=== PATIENT | male | born 1995 | race Caucasian/White ===

== ENCOUNTER 2021-01-19 13:26 | Observation (INO) | payer BC ==
[2021-01-19] MEDS ORDERED: ACETAMINOPHEN 1000 MG/100 ML VIAL (NON FORMULARY) IVPB ONE (14:02)
[2021-01-19 15:06] LABS: BASO % 0.8 % (0-2.0); EOS % 13.1 % (0-4.5); HEMATOCRIT 43.9 % (35.4-49); HEMOGLOBIN 14.9 GM/dL (11.7-16.9); LYMPH % 17.9 % (8-40); MCH 28.9 pg (25.7-33.7); MCHC 34.1 g/dl (32.0-35.9); MEAN CELL VOLUME 84.7 fl (80-96); MEAN PLT VOLUME 8.2 fl (7.5-11.1); MONO % 6.2 % (3.8-10.2); PLATELET COUNT 356 10^3/uL (134-434); RBC 5.17 M/mm3 (4.00-5.60); RDW 13.2 % (11.9-15.9)
[2021-01-19 15:19] LABS: URINE APPEARANCE CLEAR; URINE BILIRUBIN NEGATIVE (NEGATIVE); URINE COLOR YELLOW; URINE GLUCOSE (UA) NEGATIVE (NEGATIVE); URINE KETONE NEGATIVE (NEGATIVE); URINE LEUK ESTERASE NEGATIVE (NEGATIVE); URINE NITRITE NEGATIVE (NEGATIVE); URINE PROTEIN NEGATIVE (NEGATIVE)
[2021-01-19] MEDS ORDERED: ACETAMINOPHEN INJECTION 100 ML IVPB ONE (15:20)
[2021-01-19 15:27] LABS: CALCIUM 9.3 mg/dL (8.5-10.1)
[2021-01-19 15:28] LABS: ALBUMIN 3.8 g/dl (3.4-5.0); BLOOD UREA NITROGEN 17.3 mg/dL (7-18)
[2021-01-19 15:32] LABS: CREATININE 0.9 mg/dL (0.55-1.3)
[2021-01-19 15:33] LABS: BILIRUBIN,TOTAL 0.4 mg/dL (0.2-1); TOT PROT 7.4 g/dl (6.4-8.2)
[2021-01-19] MEDS ORDERED: PIPERACILLIN/TAZOB 4.5 GM 4.5 GM in DEXTROSE 5%-WATER 100 ML IVPB ONE (18:53)
[2021-01-19] MEDS ORDERED: PIPERACILLIN/TAZOB 4.5 GM 4.5 GM/100 ML BAG IVPB ONE (19:01)
[2021-01-19] MEDS ORDERED: ACETAMINOPHEN 1000 MG/100 ML VIAL (NON FORMULARY) IVPB PRN (22:54)
[2021-01-19] MEDS ORDERED: ALBUTEROL SO4 HFA INHALER IH PRN (22:54)
[2021-01-19] MEDS ORDERED: SODIUM CHLORIDE 1,000 ML IV SCH (23:00)
[2021-01-19 23:23] VITALS: BMI 25.8
[2021-01-20] MEDS ORDERED: PIPERACILLIN/TAZOBACTAM 3.375 GM VIAL IVPB ONE ×2 (00:59→09:15)
[2021-01-20] MEDS ORDERED: DEXTROSE 5%-WATER - 50 ML IVPB ONE ×2 (01:00→09:16)
[2021-01-20] MEDS ORDERED: PIPERACILLIN/TAZOB 3.375 GM 3.375 GM in DEXTROSE 5%-WATER - 50 ML IVPB ONE (02:00)
[2021-01-20 09:07] LABS: INR 1.11 (0.83-1.09); PROTHROMBIN TIME (PATIENT) 13.4 SEC (9.7-13.0)
[2021-01-20 09:10] LABS: ACTIVATED PTT 31.6 SECONDS (25.2-36.5)
[2021-01-20 09:11] LABS: EOS % 14.4 % (0-4.5); HEMATOCRIT 40.4 % (35.4-49); HEMOGLOBIN 13.6 GM/dL (11.7-16.9); LYMPH % 22.4 % (8-40); MCHC 33.7 g/dl (32.0-35.9); MEAN CELL VOLUME 86.1 fl (80-96); MEAN PLT VOLUME 8.5 fl (7.5-11.1); MONO % 7.5 % (3.8-10.2); NEUT % 54.7 % (42.8-82.8); PLATELET COUNT 305 10^3/uL (134-434); RBC 4.69 M/mm3 (4.00-5.60); RDW 13.3 % (11.9-15.9); WHITE BLOOD COUNT 8.3 K/mm3 (4.0-10.0)
[2021-01-20 09:27] LABS: CALCIUM 9.1 mg/dL (8.5-10.1)
[2021-01-20 09:32] LABS: ALBUMIN 3.4 g/dl (3.4-5.0); BLOOD UREA NITROGEN 12.6 mg/dL (7-18)
[2021-01-20 09:35] LABS: BILIRUBIN,TOTAL 0.5 mg/dL (0.2-1); CREATININE 0.8 mg/dL (0.55-1.3); PHOSPHOROUS 3.9 mg/dL (2.5-4.9); TOT PROT 6.4 g/dl (6.4-8.2)
[2021-01-20] MEDS ORDERED: PIPERACILLIN/TAZOB 3.375 GM 3.375 GM in DEXTROSE 5%-WATER - 50 ML IVPB SCH (10:00)
[2021-01-20] MEDS ORDERED: ROCURONIUM BROMIDE 50 MG/5 ML SYRINGE ONE ×2 (10:25→12:01)
[2021-01-20] MEDS ORDERED: MIDAZOLAM HCL 2 MG/2 ML SINGLE DOSE VIAL ONE (10:25)
[2021-01-20] MEDS ORDERED: DESFLURANE GAS 240 ML BOTTLE IH ONE (11:52)
[2021-01-20] MEDS ORDERED: oxyCODONE HCL 5 MG TABLET PO PRN ×2 (12:12→13:36)
[2021-01-20] MEDS ORDERED: ONDANSETRON 4 MG/2 ML VIAL IVPUSH PRN ×2 (12:12→13:36)
[2021-01-20] MEDS ORDERED: LACTATED RINGERS SOLUTION 1,000 ML IV SCH (12:15)
[2021-01-20] MEDS ORDERED: KETOROLAC TROMETHAMINE 30 MG/1 ML VIAL ONE (13:03)
[2021-01-20] MEDS ORDERED: GLYCOPYRROLATE 0.2 MG/1 ML VIAL ONE (13:06)
[2021-01-20] MEDS ORDERED: NEOSTIGMINE METHYLSULFATE 0.5 MG/ML - 10 ML MDV ONE (13:06)
[2021-01-20] MEDS ORDERED: BUPIVACAINE HCL/PF 0.5% (5MG/ML) 10 ML VIAL IJ ONE (13:07)
[2021-01-20] MEDS ORDERED: SODIUM CHLORIDE 1,000 ML IV SCH (13:36)
[2021-01-20] MEDS ORDERED: ACETAMINOPHEN 1000 MG/100 ML VIAL (NON FORMULARY) IVPB PRN (13:36)
[2021-01-20] MEDS ORDERED: ALBUTEROL SO4 HFA INHALER IH PRN (13:36)
[2021-01-20] MEDS: LACTATED RINGERS SOLUTION 1,000 ML IV SCH ×2 (16:27→23:11)
[2021-01-21] MEDS: LACTATED RINGERS SOLUTION 1,000 ML IV SCH ×2 (06:07→10:25)
[2021-01-21 08:39] LABS: BASO % 0.4 % (0-2.0); EOS % 0.7 % (0-4.5); HEMATOCRIT 41.4 % (35.4-49); HEMOGLOBIN 13.7 GM/dL (11.7-16.9); LYMPH % 21.6 % (8-40); MCH 28.5 pg (25.7-33.7); MCHC 33.1 g/dl (32.0-35.9); MEAN CELL VOLUME 86.3 fl (80-96); MEAN PLT VOLUME 8.7 fl (7.5-11.1); MONO % 8.1 % (3.8-10.2); NEUT % 69.2 % (42.8-82.8); PLATELET COUNT 361 10^3/uL (134-434); RDW 12.9 % (11.9-15.9); WHITE BLOOD COUNT 9.1 K/mm3 (4.0-10.0)
[2021-01-21 09:05] LABS: ALBUMIN 3.4 g/dl (3.4-5.0)
[2021-01-21 09:06] LABS: BLOOD UREA NITROGEN 10.2 mg/dL (7-18); CALCIUM 8.9 mg/dL (8.5-10.1); MAGNESIUM 2.1 mg/dL (1.8-2.4)
[2021-01-21 09:08] LABS: PHOSPHOROUS 3.8 mg/dL (2.5-4.9)
[2021-01-21 09:09] LABS: CREATININE 0.9 mg/dL (0.55-1.3)
[2021-01-21 09:10] LABS: BILIRUBIN,TOTAL 0.5 mg/dL (0.2-1); TOT PROT 6.4 g/dl (6.4-8.2)
[2021-01-21] MEDS ORDERED: oxyCODONE HCL 5 MG TABLET PO PRN (09:14)
[2021-01-21] MEDS: ACETAMINOPHEN 500 MG TABLET (FP) PO SCH ×3 (10:26→21:41)
[2021-01-21] MEDS: ENOXAPARIN NA (PORCINE) 40 MG/0.4 ML DISP.SYRIN SQ SCH (10:27)
[2021-01-21] MEDS: IBUPROFEN 600 MG TABLET (FP) PO SCH ×2 (10:27→18:40)
[2021-01-22] MEDS: LACTATED RINGERS SOLUTION 1,000 ML IV SCH (02:29)
[2021-01-22] MEDS: IBUPROFEN 600 MG TABLET (FP) PO SCH (02:30)
[2021-01-22] MEDS: ACETAMINOPHEN 500 MG TABLET (FP) PO SCH (02:39)
[2021-01-22] MEDS: ENOXAPARIN NA (PORCINE) 40 MG/0.4 ML DISP.SYRIN SQ SCH (09:40)
[2021-01-22 11:00] VITALS: BP 124/66; PULSE 68; TEMP 98.2
== END 2021-01-22 12:57 | disposition home or self-care (01) ==
LOC: JER 13:26 → UNDOADMOB 18:59 → JERBED 18:59 → INTOOBSV 18:59 → J8W 22:44 → JERBED 22:44 → UNDOADMOB 22:47 → J8W 01-20 10:47 → OBSVTOIN 01-20 10:47 → UNDOADMOB 01-20 10:47 → INTOOBSV 01-20 10:47 → JERBED 01-20 10:47
PROVIDERS: ATTEND Internal Medicine
PROC: 3E023GC Introduction of Other Therapeutic Substance into Muscle, Percutaneous Approach (ICD-10-PCS; 2021-01-20)
PROC: 3E033NZ Introduction of Analgesics, Hypnotics, Sedatives into Peripheral Vein, Percutaneous Approach (ICD-10-PCS; 2021-01-20)
PROC: 3E0337Z Introduction of Electrolytic and Water Balance Substance into Peripheral Vein, Percutaneous Approach (ICD-10-PCS; 2021-01-20)
PROC: 3E03329 Introduction of Other Anti-infective into Peripheral Vein, Percutaneous Approach (ICD-10-PCS; 2021-01-20)
PROC: 0DTJ4ZZ Resection of Appendix, Percutaneous Endoscopic Approach (ICD-10-PCS; principal; 2021-01-20 14:00)
DX: K35.80 Unspecified acute appendicitis (principal); J45.909 Unspecified asthma, uncomplicated; Z29.9 Encounter for prophylactic measures, unspecified; A56.8 Sexually transmitted chlamydial infection of other sites
CPT/HCPCS: 36415; 71046-TC-FY; 74177-TC; 80053; 81003; 83690; 83735; 84100; 85025; 85610; 85730; 86850; 86900; 86901; 88304-TC; 93005; 93010; 94760; 96365; 96366; 96372; 96376; 99285-25; C9803; G0378; J0131; Q9967; U0003; U0005